=== PATIENT | male | born 1945 | race Caucasian/White ===

== ENCOUNTER 2019-11-14 16:01 | Emergency (ER) | payer OTHER ==
--- NOTE | 2019-11-14 16:07 | EDM.PDOC ---
ED HPI GENERAL MEDICAL PROBLEM - General Chief Complaint: Trauma Stated Complaint: POSSIBLE BROKE LEFT WRIST Time Seen by Provider: 11/14/19 16:31 Source of Information: Reports: Patient History Limitations: Reports: No Limitations - History of Present Illness INITIAL COMMENTS - FREE TEXT/NARRATIVE: 74 yo M who presented to the ER with Left wrist injury. Reports that he fell do wn last night and landed on the outstretched Left Forearm. Developed acute injury to the Left wrist. Rates pain as 6/10. No LOC. Presented to the ER for further evaluation. Onset Date: 11/13/19 Onset Time: 16:34 Duration: Day(s): (Fell last night) Location: Reports: Upper Extremity, Left Severity: Severe Improves with: Reports: None Worsens with: Reports: None Associated Symptoms: Reports: No Other Symptoms - Related Data Allergies Allergy/AdvReac Type Severity Reaction Status Date / Time bee venom protein (honey bee) Allergy Swollen Verified 11/14/19 16:19 Tongue Sulfa (Sulfonamide Allergy Rash Verified 11/14/19 16:17 Antibiotics) Home Meds: Home Meds Allopurinol [Zyloprim] 100 mg PO DAILY 11/14/19 [History] Aspirin [Halfprin] 81 mg PO DAILY 11/14/19 [History] Hydrocodone/Acetaminophen [[place] 5-325 Tablet] 1 each PO .Q6H PRN #20 tablet 11/14/19 [Rx] Iron Ps Cmplx/Vit B12/Fa [Poly-Iron 150 Forte] 1 cap DAILY 11/14/19 [History] Metoprolol Tartrate 100 mg PO BID 11/14/19 [History] [place]-3 Acid Ethyl Esters 1 cap PO BID 11/14/19 [History] atorvaSTATin [Lipitor] 80 mg PO DAILY 11/14/19 [History] lisinopriL [Lisinopril] 40 mg PO DAILY 11/14/19 [History] Review of Systems - Review of Systems Review Of Systems: See Below Constitutional: Reports: No Symptoms Eyes: Reports: No Symptoms Ears: Reports: No Symptoms Mouth/Throat: Reports: No Symptoms Respiratory: Reports: No Symptoms Cardiovascular: Reports: No Symptoms GI/Abdominal: Reports: No Symptoms Genitourinary: Reports: No Symptoms Musculoskeletal: Reports: Joint Pain, Joint Swelling, Other (painful swollen Left wrist) Skin: Reports: No Symptoms Neurological: Reports: No Symptoms Psychiatric: Reports: No Symptoms ED EXAM, GENERAL - Physical Exam Exam: See Below Exam Limited By: No Limitations General Appearance: Alert, WD/WN, No Apparent Distress Eye Exam: Bilateral Eye: PERRL Ears: Normal External Exam, Normal TMs Nose: Normal Inspection, Normal Mucosa Throat/Mouth: Normal Inspection, Normal Lips, Normal Oropharynx Head: Atraumatic, Normocephalic Neck: Normal Inspection, Supple Respiratory/Chest: No Respiratory Distress, Lungs Clear Cardiovascular: Normal Peripheral Pulses, Regular Rate, Rhythm, No JVD GI/Abdominal: Normal Bowel Sounds, Soft, Non-Tender, No Organomegaly Back Exam: Normal Inspection, Full Range of Motion Extremities: Other (Left wrist -- swollen, tender, decreased ROM) Neurological: Alert, Oriented, CN II-XII Intact, Normal Cognition Psychiatric: Normal Affect Skin Exam: Warm, Dry, Intact Lymphatic: No Adenopathy Course - Vital Signs Last Recorded V/S: Last Vital Signs Temp 36.7 C 11/14/19 16:11 Pulse 89 11/14/19 16:11 Resp 18 11/14/19 16:11 BP 141/72 H 11/14/19 16:11 Pulse Ox 98 11/14/19 16:11 - Orders/Labs/Meds Orders: Active Orders 24 hr Category Date Time Status Wrist Comp Min 3V Lt [CR] Stat Exams 11/14/19 16:15 Taken Meds: Medications Discontinued Medications Generic Name Dose Route Start Last Admin Trade Name Freq PRN Reason Stop Dose Admin Ketorolac Tromethamine 30 mg 11/14/19 16:16 11/14/19 16:37 Toradol IM 11/14/19 16:17 30 mg ONETIME ONE Administration Departure - Departure Time of Disposition: 18:10 Disposition: Home, Self-Care 01 Clinical Impression: Left wrist injury - Discharge Information *PRESCRIPTION DRUG MONITORING PROGRAM REVIEWED*: No *COPY OF PRESCRIPTION DRUG MONITORING REPORT IN PATIENT GAIL: No Prescriptions: Hydrocodone/Acetaminophen [[place] 5-325 Tablet] 1 each PO .Q6H PRN #20 tablet PRN Reason: Pain Instructions: Wrist Splint, Adult, [id number] Referrals: Danica Law [employer] [Primary Care Provider] - Forms: ED Department Discharge Additional Instructions: Make appointment to see Orthopedic Follow with PCP [place] prn Pain Use Wrist Brace until seen by Ortho Return if symptoms worsen Call your Physician or Return to Emergency Department if: * Your condition worsens in any way. * You develop fever greater than 100.4. * You have vomitting that does not stop with medications. * You have pain that is not controlled with medications. Sepsis Event Note (ED) - Focused Exam Vital Signs: Vital Signs Temp Pulse Resp BP Pulse Ox 11/14/19 16:11 36.7 C 89 18 141/72 H 98 - Problem List & Annotations (1) Left wrist injury SNOMED Code(s): 669066440 Code(s): S69.92XA - UNSP INJURY OF LEFT WRIST, HAND AND FINGER(S), INIT ENCNTR Status: Acute Current Visit: Yes - My Orders Last 24 Hours: My Active Orders 11/14/19 16:15 Wrist Comp Min 3V Lt [CR] Stat - Assessment/Plan Last 24 Hours: My Active Orders 11/14/19 16:15 Wrist Comp Min 3V Lt [CR] Stat
[2019-11-14] MEDS ORDERED: Ketorolac 30 MG/ML SDV IM ONE (16:16)
== END 2019-11-14 18:09 | disposition home or self-care (01) ==
LOC: FB.ED 16:01
DX: S69.92XA Unspecified injury of left wrist, hand and finger(s), initial encounter (principal); Z91.030 Bee allergy status; Z88.2 Allergy status to sulfonamides; Z79.82 Long term (current) use of aspirin; W01.0XXA Fall on same level from slipping, tripping and stumbling without subsequent striking against object, initial encounter
CPT/HCPCS: 29125; 73110; 96372; 99283; J1885